=== PATIENT | male | born 1945 | race Caucasian/White ===

== ENCOUNTER → 2018-12-05 | Outpatient (CLI) | payer MEDICARE, OTHER ==
--- NOTE | 2018-12-05 17:06 | CARD ---
MR#: [id number] Date of Study: 12/05/2018 Ordering Physician: GENOVEVA LOUIS, Referring Physician: GENOVEVA LOUIS Tech: Angeles Subramanian RAJINDER APPROVED REPORT EXAM: Two-dimensional and M-mode echocardiogram with Doppler and color Doppler. Other Information Quality : Good INDICATION Cardiac Disease: CAD Family History of Abdominal Aortic Aneurysm RISK FACTORS Hyperlipidemia Family History 2D DIMENSIONS RVDd2.7 (2.9-3.5cm)Left Atrium(2D)4.2 (1.6-4.0cm) IVSd0.8 (0.7-1.1cm)Aortic Root(2D)3.3 (2.0-3.7cm) LVDd5.8 (3.9-5.9cm)LVOT Diameter2.2 (1.8-2.4cm) PWd0.8 (0.7-1.1cm)LVDs3.4 (2.5-4.0cm) FS (%) 40.6 %SV117.4 ml LVEF(%)60.0 (>50%) Aortic Valve AoV Peak Thong.138.6cm/sAoV VTI27.9cm AO Peak GR.7.7mmHgLVOT Peak Thong.119.1cm/s LVOT VTI 24.36cmAO Mean GR.4mmHg JUS (VMAX)3.50dg1RTF (VTI)3.36cm2 AI P 1/2 Xlvb713fb Mitral Valve MV E Uitdnisk73.6cm/sMV DECEL ZAMQ714li MV A Bjrnhgcf75.9cm/sE/A Ratio1.5 Tricuspid Valve TR P. Aafcofeq424zo/sRAP CQOOSNZW3jxXw TR Peak Gr.45poHaWITP82tgCy Pulmonary Vein S1 Qczqsiyr52.8cm/sD2 Seettcdl04.1cm/s LEFT VENTRICLE The left ventricle is normal size. There is normal left ventricular wall thickness. Left ventricle sy stolic function is normal. The Ejection Fraction is 55-60%. There is normal LV segmental wall motion. RIGHT VENTRICLE The right ventricle is normal size. The right ventricular systolic function is normal. ATRIA The left atrium is mildly dilated. The right atrium size is normal. The interatrial septum is intact with no evidence for an atrial septal defect or patent foramen ovale as noted on 2-D or Doppler imagi ng. AORTIC VALVE The aortic valve is calcified but opens well. Doppler and Color Flow revealed mild aortic regurgitati on. There is no significant aortic valvular stenosis. MITRAL VALVE The mitral valve is calcified but opens well. There is no evidence of mitral valve prolapse. There is no mitral valve stenosis. Doppler and Color-flow revealed mild mitral regurgitation. TRICUSPID VALVE The tricuspid valve is normal in structure and function. Doppler and Color Flow revealed trace tricus pid regurgitation. The PA pressure was estimated at 25 mmHg. There is no tricuspid valve stenosis. PULMONIC VALVE The pulmonary valve is normal in structure and function. Doppler and Color Flow revealed mild pulmoni c valvular regurgitation. There is no pulmonic valvular stenosis. GREAT VESSELS The aortic root is normal in size. The ascending aorta is mildly dilated at 3.7 cm. The IVC is normal in size and collapses >50% with inspiration. PERICARDIAL EFFUSION There is no evidence of significant pericardial effusion. Critical Notification Critical Value: No <Conclusion> Left ventricle systolic function is normal. The Ejection Fraction is 55-60%. There is normal LV segmental wall motion. Mild aortic regurgitation. Mild mitral regurgitation. Trace tricuspid regurgitation. The PA pressure was estimated at 25 mmHg. The ascending aorta is mildly dilated at 3.7 cm. There is no evidence of significant pericardial effusion. Signed by : Carlos Casas, Electronically Approved : 12/05/2018 17:06:18
== END | disposition home or self-care (01) ==
LOC: ECHO 14:53
PROVIDERS: ATTEND Specialist
DX: I08.8 Other rheumatic multiple valve diseases (principal); I25.10 Atherosclerotic heart disease of native coronary artery without angina pectoris; Z82.49 Family history of ischemic heart disease and other diseases of the circulatory system
CPT/HCPCS: 93306

== ENCOUNTER 2019-08-20 14:22 | Emergency (ER) | payer MEDICARE, OTHER ==
[~2019-08-20] VITALS: Ht 188 cm; Wt 105.0 kg
[2019-08-20] MEDS ORDERED: IV NORMAL SALINE 1,000ML 1,000 ML IV ONE (14:30)
[2019-08-20] MEDS ORDERED: ATROPINE SULFATE 1 MG VIAL ONE (14:44)
[2019-08-20 14:52] LABS: BASO # 0.1 x10^3/uL (0.0-0.2); BASO % 3 % (0-3); EOS # 0.2 x10^3/uL (0.0-0.7); EOS % 4 % (0-3); HEMATOCRIT 42.7 % (39.0-53.0); HEMOGLOBIN 14.3 g/dL (13.0-17.5); LYMPH # 1.6 x10^3/uL (1.0-4.8); LYMPH % 29 % (24-48); MEAN CORPUSCULAR HEMOGLOBIN 32 pg (25-35); MEAN CORPUSCULAR HGB CONC 34 g/dL (31-37); MEAN CORPUSCULAR VOLUME 95 fL (79-100); MONO # 0.6 x10^3/uL (0.0-1.1); MONO % 11 % (0-9); NEUT # 2.9 x10^3uL (1.8-7.7); NEUT % 53 % (31-73); PLATELET COUNT 216 x10^3/uL (140-400); RED BLOOD COUNT 4.49 x10^6/uL (4.30-5.70); RED CELL DISTRIBUTION WIDTH 12.7 % (11.5-14.5); WHITE BLOOD COUNT 5.6 x10^3/uL (4.0-11.0)
[2019-08-20 15:01] LABS: CALCIUM 9.1 mg/dL (8.5-10.1); CREATININE 0.9 mg/dL (0.7-1.3); GFR 82.5; POTASSIUM 4.2 mmol/L (3.5-5.1)
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
[2019-08-20 15:17] LABS: ALBUMIN 3.9 g/dL (3.4-5.0); ALBUMIN/GLOBULIN RATIO 1.4 (1.0-1.7); MAGNESIUM 1.9 mg/dL (1.8-2.4); TOTAL BILIRUBIN 0.4 mg/dL (0.2-1.0); TOTAL PROTEIN 6.7 g/dL (6.4-8.2)
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
[2019-08-20 16:41] LABS: FREE T4 0.97 ng/dL (0.76-1.46); THYROID STIM HORMONE (TSH) 5.073 uIU/mL (0.358-3.740)
[2019-08-20 17:55] LABS: BARBITURATES NEG (NEG); BENZODIAZEPINES NEG (NEG); CANNABINOIDS NEG (NEG); COCAINE NEG (NEG); METHADONE NEG (NEG); OPIATES NEG (NEG); PHENCYCLIDINE NEG (NEG)
[2019-08-20 18:02] VITALS: BP 145/71
[2019-08-20 18:06] LABS: AMPHETAMINE/METHAMPHETAMINE NEG (NEG)
[2019-08-20 18:29] LABS: BILIRUBIN,URINE NEG (NEG); CLARITY,URINE CLEAR; COLOR,URINE YELLOW; GLUCOSE,URINE NEG (NEG); UROBILINOGEN,URINE 0.2 mg/dL (0.2 mg/dL)
[2019-08-20 18:30] LABS: BACTERIA,URINE 0 /HPF (0-FEW); NITRITE,URINE NEG (NEG); RBC,URINE OCC /HPF (0-2)
--- NOTE | 2019-08-20 18:32 | EKG ---
[address] [address] Test Date: 2019-08-20 Test Time: 14:26:20 Pat Name: JANETTE MORALEZ Department: Room: Gender: M Desktop Support Consultant: : 1945 Requested By: KIMBERLI SOARES Order Number: [id number] Reading MD: Carlos Casas Measurements Intervals [place] Rate: 57 P: 31 OK: 184 QRS: 36 QRSD: 104 T: 29 QT: 396 QTc: 388 Interpretive Statements SINUS RHYTHM Electronically Signed On 08-21-2019 15:50:00 CDT by Carlos Casas
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
== END 2019-08-20 18:13 | disposition short-term general hospital (02) ==
LOC: ER 14:22
DX: R55 Syncope and collapse (principal); R00.1 Bradycardia, unspecified; I25.10 Atherosclerotic heart disease of native coronary artery without angina pectoris; E78.00 Pure hypercholesterolemia, unspecified; I25.2 Old myocardial infarction; Z98.61 Coronary angioplasty status; V89.2XXA Person injured in unspecified motor-vehicle accident, traffic, initial encounter; Y93.I9 Activity, other involving external motion; Y92.89 Other specified places as the place of occurrence of the external cause; Y99.8 Other external cause status
CPT/HCPCS: 36415; 70450; 71046; 72125; 80053; 80307; 81001; 82553; 83605; 83735; 84439; 84443; 84481; 84484; 85025; 85610; 85730; 87086; 93005; 96360; 99285; G0480; J7030

== ENCOUNTER → 2020-11-27 | Outpatient (CLI) | payer MEDICARE, OTHER ==
--- NOTE | 2020-11-27 12:52 | RAD ---
Ultrasound evaluation of the abdominal aorta, screening exam 11/27/2020 CLINICAL HISTORY: Screening for abdominal aortic aneurysm TECHNIQUE: The abdominal aorta was examined from the diaphragm to the proximal common iliac arteries. FINDINGS: Proximal abdominal aorta measures up to 0.5 cm in diameter. Mid abdominal aorta measures up to 0.1 cm in diameter. Distal abdominal aorta measures up to 1.7 cm in diameter. The bilateral common iliac arteries are nonaneurysmal. There is diffuse atherosclerotic vascular disease. No evidence of aneurysm, or occlusion is seen. No evidence of high-grade stenosis is identified. IMPRESSION: No sonographic evidence of abdominal aortic aneurysm Electronically signed by: Kiet Vaughn MD (11/27/2020 12:50 PM) [id number]
== END ==
LOC: US 10:51
PROVIDERS: ATTEND Specialist
DX: I25.10 Atherosclerotic heart disease of native coronary artery without angina pectoris (principal)
CPT/HCPCS: 76770

== ENCOUNTER → 2021-02-03 | Outpatient (CLI) | payer MEDICARE, OTHER ==
[~2021-02-03] MED LIST: AMLO-186 PO; ASPI-630 PO; ATORVASTATIN CA80 MG PO; EZET10TA20 PO; UBID200C32 PO; VIT1TABL32 PO; VITAMIN B COMPLEX; VITAMIN D
== END ==
LOC: LAB 08:51
PROVIDERS: ATTEND Internal Medicine Gastroenterology
DX: Z01.812 Encounter for preprocedural laboratory examination (principal); Z20.822 Contact with and (suspected) exposure to COVID-19
CPT/HCPCS: U0003

== ENCOUNTER → 2021-02-06 | Day surgery (SDC) | payer MEDICARE, OTHER ==
[~2021-02-06] MED LIST changes: +GLYCOPYRROLATE 1 MG/5 ML VIAL. ONE; +IPRATRPIUM/ALBUTEROL 0.5/2.5MG 3 ML NEBU. NEB PRN; +LIDOCAINE 2% PF 5 ML VIAL. ONE; +MIDAZOLAM HCL PF 2 MG/2 ML VIAL. IV ONE; +ONDANSETRON PF 4 MG/2 ML VIAL. IV PRN; +PROPOFOL 10,000 MCG/ML (20ML) VIAL IV ONE
[2021-02-06] MEDS: IV RINGERS SOLUTION,LACTATED 1,000 ML IV SCH (12:19)
[2021-02-06 14:34] VITALS: BP 117/85
== END | disposition home or self-care (01) ==
LOC: SURG 11:36
PROVIDERS: ATTEND Internal Medicine Gastroenterology
DX: R19.4 Change in bowel habit (principal); K64.8 Other hemorrhoids; K57.30 Diverticulosis of large intestine without perforation or abscess without bleeding; K63.89 Other specified diseases of intestine; I10 Essential (primary) hypertension; E78.00 Pure hypercholesterolemia, unspecified; Z79.82 Long term (current) use of aspirin; Z79.899 Other long term (current) drug therapy; Z98.890 Other specified postprocedural states; Z72.89 Other problems related to lifestyle
CPT/HCPCS: 45378; J2001; J2704; J3490; J7120; G0105

== ENCOUNTER 2021-05-16 07:15 | Emergency (ER) | payer MEDICARE, OTHER ==
[~2021-05-16] VITALS: Ht 185.4 cm; Wt 105.0 kg
[~2021-05-16 07:15] MED LIST changes: -GLYCOPYRROLATE 1 MG/5 ML VIAL. ONE; -IPRATRPIUM/ALBUTEROL 0.5/2.5MG 3 ML NEBU. NEB PRN; -LIDOCAINE 2% PF 5 ML VIAL. ONE; -MIDAZOLAM HCL PF 2 MG/2 ML VIAL. IV ONE; -ONDANSETRON PF 4 MG/2 ML VIAL. IV PRN; -PROPOFOL 10,000 MCG/ML (20ML) VIAL IV ONE
--- NOTE | 2021-05-16 07:22 | PHYS DOC ---
Past History Past Medical History: CAD, High Cholesterol, IN Past Surgical History: Angioplasty, Other Additional Past Surgical Histo: 4 stents Smoking: Non-smoker Alcohol Use: None Drug Use: None Adult General HPI HPI Patient is a 75-year-old male presenting for left hand and wrist pain. Injury onset was yesterday, was playing recreational pickleball when he lost his balance and fell backwards falling on an outstretched left hand. He thought n othing of it and continued to play. Nonetheless, several hours after he stopped playing he noticed some mild soft tissue swelling and pain over distal portion of his wrist. He applied topical diclofenac cream and took several doses of Tylenol yesterday and this morning but pain persisted. Increased swelling concerned him prompting him to come in for evaluation. No history of os teoporosis or other bone abnormalities, he has no changes in motor or sensory or neuro function Review of Systems Review of Systems Fourteen body systems of review of systems have been reviewed. See HPI for pertinent positives and negative responses, other benitez all other systems are negative, non-pertinent or non-contributory Allergies Allergies Allergies Coded Allergies Type Severity Reaction Last Updated Verified No Known Drug Allergies 02/06/21 No Physical Exam Physical Exam Constitutional: Well developed, well nourished, no acute distress, non-toxic appearance. HENT: Normocephalic, atraumatic, bilateral external ears normal, oropharynx moist, no oral exudates, nose normal. Eyes: PERRLA, EOMI, conjunctiva normal, no discharge. Neck: Normal range of motion, no tenderness, supple, no stridor. Cardiovascular: Heart rate regular per monitor Lungs & Thorax: No respiratory distress or accessory muscle use, bilateral chest rise Abdomen: Abdomen soft, non-tender, bowel sounds present in all quadrants, no guarding or rebound, nonacute abdomen. Skin: Warm, dry, no erythema, no rash. Back: No tenderness, no CVA tenderness. Extremities: Tenderness present to distal aspect of ulna and radius bones without anatomical snuffbox tenderness, unremarkable formal exam of left elbow, left soft tissue compartments, left wrist, left hand and fingers. No cyanosis, no clubbing, ROM intact, no edema. 2+ radial pulses, cap refill less than 3 seconds in all distal extremities Neurologic: Alert and oriented X 3, normal motor & sensory function with specific mention of fully intact medial radial and ulnar nerves of bilateral upper extremities, no focal deficits noted. Psychologic: Affect normal, judgement normal, mood normal. Current Patient Data Vital Signs Vital Signs Date Time Temp Pulse Resp B/P (MAP) Pulse Ox O2 Delivery O2 Flow Rate FiO2 05/16/21 07:34 72 18 151/73 (99) 98 Vital Signs Date Time Temp Pulse Resp B/P (MAP) Pulse Ox O2 Delivery O2 Flow Rate FiO2 05/16/21 07:34 72 18 151/73 (99) 98 EKG EKG [] Radiology/Procedures Radiology/Procedures Left wrist 3 views: Reason for examination: Fell on outstretched hand. No acute fracture or dislocation is seen. Bone density shows some demineralization but no focal lytic or blastic lesions. No abnormal periosteal reaction is seen. There does appear to be a chronic appearing ossific density at the distal radius which has corticated margins and could represent a chronic avulsion. There is degenerative change at the first carpometacarpal joint. IMPRESSION: No acute bony abnormality seen at the left wrist. Degenerative changes at the first carpometacarpal joint. Left hand 3 views: No acute fracture or dislocation is seen. The bone density is normal. No abnormal periosteal reaction is seen. Again noted is the degenerative changes at the first carpometacarpal joint. Remaining joint spaces are fairly well-mainta ined but there is some degenerative change at the distal interphalangeal joint of the middle finger. IMPRESSION: No acute bony abnormality at the left hand. Electronically signed by: Ally Yo MD (05/16/2021 8:02 AM) [id number] Heart Score C/O Chest Pain: No Risk Factors: Risk Factors: DM, Current or recent (<one month) smoker, HTN, HLP, family history of CAD, obesity. Risk Scores: Risk Factors: DM, Current or recent (<one month) smoker, HTN, HLP, family history of CAD, obesity. Course & Med Decision Making Course & Med Decision Making ABCs unremarkable HPI physical exam and comprehensive ER work-up consisted of radiographs of left hand and wrist nonconcerning for any acute bony abnormality Discussed most likely diagnosis of contusion that should resolve with supportive care practices which were educated at length. Strict return precautions and appropriate outpatient follow-up advised Raquel Disclaimer Dragon Disclaimer This electronic medical record was generated, in whole or in part, using a voice recognition dictation system. Departure Departure: Impression: Primary Impression: Left wrist pain Disposition: HOME / SELF CARE / HOMELESS Condition: STABLE Referrals: GENOVEVA LOUIS MD (PCP) Patient Instructions: RICE - Routine Care for Injuries, Wrist Exercises, Generic-SportsMed Additional Instructions: It is likely that you have experienced a contusion within the joint that is causing you pain. The best treatment for this injury is continued range of motion to prevent a frozen joint. A Rest, Ice, Compression, Elevation (RICE) strategy may also be helpful in the acute phase. Tylenol should be prioritized for pain control. Please follow up with your primary doctor. Please return to the ED if new or worrisome symptoms arise. STEVIE HDZ DO May 16, 2021 07:22
[2021-05-16 07:34] VITALS: BP 151/73
--- NOTE | 2021-05-16 08:05 | RAD ---
Left wrist 3 views: Reason for examination: Fell on outstretched hand. No acute fracture or dislocation is seen. Bone density shows some demineralization but no focal lytic or blastic lesions. No abnormal periosteal reaction is seen. There does appear to be a chronic appea ring ossific density at the distal radius which has corticated margins and could represent a chronic avulsion. There is degenerative change at the first carpometacarpal joint. IMPRESSION: No acute bony abnormality seen at the left wrist. Degenerative changes at the first carpometacarpal joint. Left hand 3 views: No acute fracture or dislocation is seen. The bone density is normal. No abnormal periosteal reaction is seen. Again noted is the degenerative changes at the first carpometacarpal joint. Remaining joint spaces are fairly well-maintained but there is some degenerative change at the distal interphalangea l joint of the middle finger. IMPRESSION: No acute bony abnormality at the left hand. Electronically signed by: Ally Yo MD (05/16/2021 8:02 AM) [id number]
== END 2021-05-16 08:23 | disposition home or self-care (01) ==
LOC: ER 07:15
DX: M25.532 Pain in left wrist (principal); I25.10 Atherosclerotic heart disease of native coronary artery without angina pectoris; E78.00 Pure hypercholesterolemia, unspecified; I25.2 Old myocardial infarction
CPT/HCPCS: 73110; 73130; 99284